=== PATIENT | male | born 1935 | race Caucasian/White ===

== ENCOUNTER → 2017-01-06 | Outpatient (CLI) | payer OTHER, MEDICARE ==
--- NOTE | 2017-01-06 14:17 | MRI ---
EXAM DESCRIPTION: MRI brain without and with contrast CLINICAL HISTORY: Syncope. COMPARISON: None Available. TECHNIQUE: Multi planar, multi sequence MRI evaluation of the brain, pre and post intravenous gadolinium FINDINGS: No intracranial hemorrhage, acute infarction, or mass lesion. Extensive white matter disease with multifocal patchy and confluent T2/FLAIR white matter hyperintensity throughout the bilateral cerebral hemispheres and periventricular white matter. No lesions in the temporal lobes, brainstem or posterior fossa. No lesions within the corpus callosum. Changes are likely severe chronic microvascular ischemia. There is no restricted diffusion. No pathologic enhancement throughout the brain Cerebral volume loss with prominence of the cortical sulci and ventricular system. Normal flow voids are present in the major intracranial arteries and dural venous sinuses No abnormality is seen along the course of the cranial nerves. Normal appearance of the temporal bones Orbits are grossly normal Chronic circumferential mucosal thickening right maxillary sinus and mild mucosal thickening in ethmoid air cells. No paranasal sinus or mastoid fluid IMPRESSION: Extensive chronic white matter disease nonspecific, likely chronic microvascular ischemia. No acute infarct Electronically signed by: Ashok Das MD 01/06/2017 2:16 PM [employer]
== END | disposition home or self-care (01) ==
LOC: MRI 07:48
PROVIDERS: ATTEND Family Medicine
DX: R55 Syncope and collapse (principal)

== ENCOUNTER → 2017-04-03 | Outpatient (CLI) | payer OTHER, MEDICARE | END | disposition home or self-care (01) | LOC: GMAL 11:33 | PROVIDERS: ATTEND Family Medicine | DX: S61.409A Unspecified open wound of unspecified hand, initial encounter (principal) ==